=== PATIENT | male | born 1985 | race Caucasian/White ===

== ENCOUNTER 2018-08-15 12:14 | Emergency (ER) | payer SELFPAY ==
[2018-08-15 12:30] VITALS: BP 137/70; PULSE 71; TEMP 98; BMI 34.9
[2018-08-15] MEDS ORDERED: TETRACAINE 0.5% OPHTH SOLN 2 ML BOTTLE ONE (12:59)
--- NOTE | 2018-08-15 13:34 | PDOC ---
History of Present Illness - General Chief Complaint: Eye Problem Stated Complaint: EYE PROBLEM Time Seen by Provider: 08/15/18 13:09 History Source: Patient Exam Limitations: No Limitations - History of Present Illness Initial Comments: 08/15/18 13:30 HISTORY OF PRESENT ILLNESS: Is a 33-year-old male with denies medical history was brought to the emergency department with right eye pain status post striking himself with a hammer. Patient states he was trying to remove a nail with a claw hammer when the nail suddenly gave way causing the pointed end of a claw hammer to strike the patient in the right eye. Patient denies any blurry vision or periorbital pain. No recent travel or sick contacts. PAST MEDICAL HISTORY: Denies past medical history SURGICAL HISTORY: Denies ALLERGIES: No known drug allergies REVIEW OF SYSTEMS General/Constitutional: Denies fever or chills. Denies weakness, weight change. HEENT: Denies change in vision. Right eye pain. Denies ear pain or discharge. Denies sore throat. Cardiovascular: Denies chest pain or shortness of breath. Respiratory: Denies cough, wheezing, or hemoptysis. Gastrointestinal: Denies nausea, vomiting, diarrhea or constipation. Denies rectal bleeding. Genitourinary: Denies dysuria, frequency, or change in urination. Musculoskeletal: Denies joint or muscle swelling or pain. Denies neck or back pain. Skin and breasts: Denies rash or easy bruising. Neurologic: Denies headache, vertigo, loss of consciousness, or loss of sensation. Psychiatric: Denies depression or anxiety. Endocrine: Denies increased thirst. Denies abnormal weight change. Hematologic/Lymphatic: Denies anemia, easy bleeding, or history of blood clots. Allergic/Immunologic: Denies hives or skin allergy. Denies latex allergy. PHYSICAL EXAM General Appearance: Well-appearing, appropriately dressed. No apparent distress , no intoxication. HEENT: EOMI, PERRLA, normal voice, TMs normal, pharynx normal. No conjunctival pallor. No photophobia, scleral icterus. Scleral deformity present to right eye medially on border of Zone2/3. Neck: Supple. Trachea midline. No tenderness, rigidity, carotid bruit, stridor , lymphadenopathy, or thyromegaly. Respiratory/Chest: Lungs CTAB. No shortness of breath, chest tenderness, respiratory distress, accessory muscle use. No crackles, rales, rhonchi, stridor , wheezing, dullness Cardiovascular: RRR. S1, S2. No JVD, murmur, bradycardia, tachycardia. Vascular Pulses: Dorsalis-Pedis (R): 2+, Dorsalis-Pedis (L): 2+ Gastrointestinal/Abdominal: Normal bowel sounds. Abdomen soft, non-distended. No tenderness or rebound tenderness. No organomegaly, pulsatile mass, guarding, hernia, hepatomegaly, splenomegaly. Lymphatic: No adenopathy, tenderness. Musculoskeletal/Extremities: Normal inspection. FROM of all extremities, normal capillary refill. Pelvis Stable. No CVA tenderness. No tenderness to extremities, pedal edema, swelling, erythema or deformity. Integumentary: Appropriate color, dry, warm. No cyanosis, erythema, jaundice or rash Neurologic: marble rubber II-XII intact. Fully oriented, alert. Appropriate mood/affect. Motor strength 5/5. No appreciable EOM palsy, facial droop or sensory deficit. Past History - Past Medical History Allergies/Adverse Reactions: Allergies Allergy/AdvReac Type Severity Reaction Status Date / Time No Known Allergies Allergy Verified 08/15/18 12:27 Home Medications: Ambulatory Orders NK [No Known Home Medication] 08/15/18 COPD: No CHF: No - Suicide/Smoking/Psychosocial Hx Smoking History: Never smoked Have you smoked in the past 12 months: No Information on smoking cessation initiated: No Hx Alcohol Use: No Drug/Substance Use Hx: No Substance Use Type: None *Physical Exam - Vital Signs Last Vital Signs Temp Pulse Resp BP Pulse Ox 98 F 71 16 137/70 100 08/15/18 12:27 08/15/18 12:27 08/15/18 12:27 08/15/18 12:27 08/15/18 12:27 Medical Decision Making - Medical Decision Making 08/15/18 13:30 A/P: 33-year-old male with right eye pain status post trauma EYE EXAMINATION: Visual acuity: 20/50 in the left eye, 20/50 in the right eye, near, uncorrected The lid and lashes are normal. Extraocular movements are intact. The conjunctiva is clear without erythema, injection, or discharge. No intraoccular contents extruded. No hyphema present. The corneal surface is normal post tetracaine and fluorescein. Zone 2/3 corneal defect present. ?depth The pupils are equal, round and reactive to light. No pupillary deformity noted. The fundus shows normal vessels and normal discs. CT of the facial bones to rule out orbital fracture and or globe rupture 08/15/18 16:14 CT as read by Dr. Posadas: Air pocket along the anterior superior margin of the right eye globe likely under the eyelid. The right eye globe is grossly intact. No retrobulbar abnormal attenuation is seen. Ophthalmology consult is suggested for further evaluation Case discussed with Dr. Parr who is the on-call music theory professor who recommends patient transfer to [facility] for evaluation of scleral laceration and globe rupture Case discussed with Dr. Hendrix of [facility] emergency department to accept transfer for ophthalmologic evaluation. Patient will be transferred to the main ER for continued evaluation and IV antibiotics. *DC/Admit/Observation/Transfer Diagnosis at time of Disposition: Scleral laceration of right eye Qualifiers: Encounter type: initial encounter Qualified Code(s): S05.31XA - Ocular laceration without prolapse or loss of intraocular tissue, right eye, initial encounter - Discharge Dispostion Disposition: TRANSFER ACUTE CARE/OTHER HOSP Condition at time of disposition: Fair - Referrals - Patient Instructions - Post Discharge Activity - Transfer to Acute Care Facility Receiving Facility: [facility]. Accepting Physician:: Simeon
[2018-08-15] MEDS ORDERED: cefTAZidime PENTAHYDRATE 1 GM/50ML PRE-DOCKED (RESTRICTED TO ID) IVPB ONE (16:11)
[2018-08-15] MEDS ORDERED: VANCOMYCIN 1,500 MG in DEXTROSE 5%-WATER - 500 ML IVPB ONE (16:13)
== END 2018-08-15 17:13 | disposition short-term general hospital (02) ==
LOC: JERFT 12:14 → JER 12:14
PROC: 3E03329 Introduction of Other Anti-infective into Peripheral Vein, Percutaneous Approach (ICD-10-PCS; principal; 2018-08-15)
PROC: 4A07X0Z Measurement of Visual Acuity, External Approach (ICD-10-PCS; 2018-08-15)
DX: S05.31XA Ocular laceration without prolapse or loss of intraocular tissue, right eye, initial encounter (principal); W27.8XXA Contact with other nonpowered hand tool, initial encounter; Y93.89 Activity, other specified; Y92.89 Other specified places as the place of occurrence of the external cause; Y99.8 Other external cause status
CPT/HCPCS: 70486-TC; 99282-25